=== PATIENT | female | born 1970 | race Caucasian/White ===

== ENCOUNTER → 2020-11-12 | Day surgery (SDC) | payer OTHER ==
[~2020-11-12] MED LIST: EDARBI40 MG PO; FLUOXETINE HCL10 M1 PO; TOVIAZ4 MG PO; TRILEPTAL300 MG PO
== END | disposition home or self-care (01) ==
LOC: OR 06:09
DX: Z12.11 Encounter for screening for malignant neoplasm of colon (principal); I10 Essential (primary) hypertension; F31.9 Bipolar disorder, unspecified; Z86.010 Personal history of colon polyps; Z83.3 Family history of diabetes mellitus; Z82.49 Family history of ischemic heart disease and other diseases of the circulatory system; Z80.0 Family history of malignant neoplasm of digestive organs
CPT/HCPCS: 84703; J2704; J7030

== ENCOUNTER → 2021-02-12 | Outpatient (CLI) | payer OTHER | LOC: CT 10:30 | DX: R10.9 Unspecified abdominal pain (principal); R10.31 Right lower quadrant pain; R10.11 Right upper quadrant pain; R19.15 Other abnormal bowel sounds; R50.9 Fever, unspecified; N12 Tubulo-interstitial nephritis, not specified as acute or chronic; N28.81 Hypertrophy of kidney | CPT/HCPCS: 36415; 82565; Q9967 ==

== ENCOUNTER → 2021-02-14 | Outpatient (CLI) | payer OTHER | LOC: OPSV 13:54 | DX: E86.0 Dehydration (principal); N12 Tubulo-interstitial nephritis, not specified as acute or chronic | CPT/HCPCS: 96360; J7030 ==